=== PATIENT | female | born 1960 | race Caucasian/White ===

== ENCOUNTER 2023-11-10 07:37 | Day surgery (SDC) | payer MEDICARE ==
[2023-11-04 14:30] LABS: BASOPHILS % (AUTO) 0.7 % (0-1); EOSINOPHILS # (AUTO) 0.1 X10'3 (0-0.9); EOSINOPHILS % (AUTO) 1.3 % (0-6); HEMATOCRIT 45.8 % (35.0-45.0); HEMOGLOBIN 15.4 g/dl (12.0-16.0); LYMPHOCYTES # (AUTO) 1.9 X10'3 (1.1-4.8); LYMPHOCYTES % (AUTO) 35.4 % (21-51); MEAN CORPUSCULAR HEMOGLOBIN 30.1 PG (27.0-31.0); MEAN CORPUSCULAR HGB CONC 33.6 g/dL (33.0-36.5); MEAN CORPUSCULAR VOLUME 89.7 FL (78-98); MEAN PLATELET VOLUME 7.5 FL (7.4-10.4); MONOCYTES # (AUTO) 0.4 X10'3 (0-0.9); NEUTROPHILS % (AUTO) 55.6 % (42-75); PLATELET COUNT 303 X10'3 (140-440); RED CELL DISTRIBUTION WIDTH 12.5 % (11.5-14.5); WHITE BLOOD COUNT 5.4 X10'3 (4.5-11.0)
[2023-11-04 14:46] LABS: ALANINE AMINOTRANSFERASE 42 U/L (12-78); ALBUMIN 4.1 G/DL (3.4-5.0); ALBUMIN/GLOBULIN RATIO 1.2 (1.1-1.5); ALKALINE PHOSPHATASE 83 IU/L (46-116); ANION GAP 7 (8-16); ASPARTATE AMINO TRANSFERASE 27 U/L (10-37); BILIRUBIN,TOTAL 0.5 MG/DL (0.1-1.0); BLOOD UREA NITROGEN 13 MG/DL (7-18); CALCIUM 9.6 MG/DL (8.5-10.1); CHLORIDE 103 MMOL/L (99-107); CREATININE 0.93 MG/DL (0.40-0.90); GLUCOSE 96 MG/DL (70-104); POTASSIUM 4.3 MMOL/L (3.5-5.1); SODIUM 142 MMOL/L (135-145); TOTAL CARBON DIOXIDE 32.2 MMOL/L (24-32); TOTAL PROTEIN 7.5 G/DL (6.4-8.2); eGFR 61 ML/MIN
[2023-11-10] VITALS (8 sets, daily range): BP systolic 115–138; BP diastolic 66–73; PULSE 64–101; RESP 13–18; TEMP 98.3; O2SAT 91–100
[~2023-11-10] VITALS: Ht 157.5 cm; Wt 74.2 kg
[2023-11-10] MEDS: cefazolin 2gm/D5W 100mL 100 ML IV ONE (05:30)
[~2023-11-10 07:37] MED LIST: ATOR20TA66 PO; AZO BLADDER CONTROL; CYCL-1 PO; FOCUS FACTOR; HYDR-3973 PO; MELATONIN; MILN50TA; NERVIVE; ONE A DAY; PREG25CA19; TEMA15CA PO; [UNRECOGNIZED DRUG - MIXTURE]; [UNRECOGNIZED DRUG - OTHER]; ringers solution, lacted 1,000 ML IV SCH
[2023-11-10] MEDS: famotidine 20mg tablet PO ONE (08:41)
[2023-11-10] MEDS: INDOCYANINE GREEN 25 MG/10 ML VIAL IV ONE (08:41)
[2023-11-10] MEDS ORDERED: morphine 4 MG/ML inj SYRINge IV PRN (09:55)
[2023-11-10] MEDS ORDERED: ringers solution, lacted 1,000 ML IV SCH (09:55)
[2023-11-10] MEDS ORDERED: hydrALAZINE 20mg/ml inj. IV PRN (09:55)
[2023-11-10] MEDS ORDERED: ondansetron/PF 4mg/2ml inj IV PRN (09:55)
[2023-11-10] MEDS ORDERED: proCHLORperazine 10 MG/2 ml inj IV PRN (09:55)
[2023-11-10] MEDS ORDERED: meperidine/PF 25mg/ml syringe IV PRN (09:55)
[2023-11-10] MEDS ORDERED: labetalol 20mg/4ml (5mg/ml) syringe IV PRN (09:55)
[2023-11-10] MEDS ORDERED: morphine 2 MG/ML inj. syringe IV PRN (09:55)
[2023-11-10] MEDS ORDERED: HYDROmorphone/PF 0.2 MG/ML SYRINGE IV PRN (09:55)
[2023-11-10] MEDS ORDERED: BUPIVAcaine 2.5mg/ml inj 50ml vial (contains preservative) ONE (09:57)
[2023-11-10] MEDS ORDERED: LIDOcaine 1% (10mg/ml)w/preservative inj. 20ml MDV ONE (09:57)
[2023-11-10] MEDS ORDERED: sevoflurane 250ml liquid IH ONE (10:08)
[2023-11-10] MEDS ORDERED: midazolam 1 mg/ML 2ml injection ONE (10:18)
[2023-11-10] MEDS ORDERED: propofol inj 20 ML IV ONE (10:37)
[2023-11-10] MEDS ORDERED: fentaNYL /PF 50mcg/ml 5ml ampule ONE (10:37)
[2023-11-10] MEDS ORDERED: LIDOcaine 2% (20mg/ml) 5ml vial ONE (10:37)
[2023-11-10] MEDS ORDERED: rocuronium 10mg/ml inj IV ONE (10:37)
[2023-11-10] MEDS ORDERED: dexamethasone sod phosphate 4mg/ml inj. ONE (10:37)
[2023-11-10] MEDS ORDERED: ondansetron/PF 4mg/2ml inj ONE (10:41)
[2023-11-10] MEDS ORDERED: neostigmine methylsulfate 1 MG/ML 10ml vial ONE (11:14)
[2023-11-10] MEDS ORDERED: glycopyrrolate 0.2mg/ml inj ONE (11:15)
[2023-11-10] MEDS ORDERED: sugammadex 200mg/2ml injection IV ONE (11:15)
[2023-11-10] MEDS ORDERED: ondansetron 4mg rapidly disintigrating tab PO PRN (11:25)
[2023-11-10] MEDS ORDERED: albuterol 60 PUFF/8GM Inhaler (90mcg/1 puff) IH ONE (11:26)
[2023-11-10] MEDS: acetaminophen 1,000mg/100ml IV 100 ML IV ONE (11:50)
[2023-11-10] MEDS: HYDROmorphone/PF 0.2 MG/ML SYRINGE IV PRN (11:50)
--- NOTE | 2023-11-10 12:02 | NUR ---
Received from OR via [facility] IN STABLE CONDITION , accompanied by Anesthesiologist and CONCRETE BUCKET HOOKER report given by CONCRETE BUCKET HOOKER AND Anesthesiologist. Addendum: 11/10/23 at 1206 by Georgina Ayala RN Amended: Links added.
[2023-11-10] MEDS: HYDROcodone/acetaminophen 10/325mg tab PO ONE (12:18)
--- NOTE | 2023-11-10 12:56 | NUR ---
PATIENT DISCHARGED FROM PACU IN STABLE CONDITION AFTER WRITTEN AND VERBAL DISCHARGE INSTRUCTIONS GIVEN PATIENT AND VERBALIZED UNDERSTANDING OF INSTRUCTIONS. PATIENT LEFT FACILITY VIA WHEELCHAIR WITH RN. Addendum: 11/10/23 at 1312 by Georgina Ayala RN Amended: Links added.
== END 2023-11-10 12:56 | disposition home or self-care (01) ==
LOC: PAS 07:37
PROVIDERS: ATTEND Surgery
DX: K80.10 Calculus of gallbladder with chronic cholecystitis without obstruction (principal); E78.5 Hyperlipidemia, unspecified; M79.7 Fibromyalgia; G62.9 Polyneuropathy, unspecified; F41.9 Anxiety disorder, unspecified; F32.A Depression, unspecified; F12.90 Cannabis use, unspecified, uncomplicated; Z87.891 Personal history of nicotine dependence; Z79.891 Long term (current) use of opiate analgesic; Z79.899 Other long term (current) drug therapy; Z90.49 Acquired absence of other specified parts of digestive tract; Z96.611 Presence of right artificial shoulder joint; Z98.890 Other specified postprocedural states; Z88.8 Allergy status to other drugs, medicaments and biological substances; Z80.1 Family history of malignant neoplasm of trachea, bronchus and lung; Z82.3 Family history of stroke; Z82.49 Family history of ischemic heart disease and other diseases of the circulatory system; Z83.3 Family history of diabetes mellitus
CPT/HCPCS: 36415; 47563; 80053; 82948; 85025; 93005; A4215; A4615; A4618; A7000; J0131; J0690; J1100; J1170; J2001; J2250; J2405; J2704; J2710; J3010; J3490; J7030; J7120; Z7506; Z7508; Z7512; Z7610; 88304